=== PATIENT | male | born 1965 | race Caucasian/White ===

== ENCOUNTER 2018-10-28 22:12 | Emergency (ER) | payer BC ==
[2018-10-28 22:16] VITALS: BP 147/78; PULSE 81; TEMP 99.1; BMI 33.7
--- NOTE | 2018-10-28 23:13 | PDOC ---
History of Present Illness - General History Source: Patient Exam Limitations: No Limitations - History of Present Illness Initial Comments: 10/28/18 23:41 The patient is a 53 year old male with no past medical history presents to the emergency department with chest pain. The patient reports earlier today he had an acute onset of L. flank pain that radiates to the anterior chest wall at 8: 00 pm. The patient reports at 7 following up at the Urgent Care for the flank pain, with unremarkable work up and returned home around 8:00 pm. The patient reports when he returned home he developed anterior chest pain, with pain with deep breathing. The patient reports he was unable to lay down. Denies any burning sensation to the chest. The patient report last night at 2:00 am, he had an episode of cold flare up without relief with multiple blankets. The patient states he was lifting heavy objects on Friday, he was moving furnitures and heavy objects. The patient reports in the last year he had gain couple of pounds, states he had stopped going to the gym. Denies fever, chills, shortness of breath, hx of panic attack, leg pain, swelling, back pain. Allergies: NKDA Social history: Social history of alcohol. No tobacco or recreational drug use reported. Surgical history: left elbow tricep tendon repair by Dr. Bhatt (04/30/16) PCP: Dr. Gigi Bailey. <Santa Tolentino - Last Filed: 10/29/18 00:28> <Sarahy Brooks - Last Filed: 10/29/18 02:00> - General Chief Complaint: Chest Pain Stated Complaint: CHEST PAIN Time Seen by Provider: 10/28/18 23:13 Past History <Santa Tolentino - Last Filed: 10/29/18 00:28> - Past Medical History Anemia: No Asthma: No Cancer: No Cardiac Disorders: No CVA: No COPD: No CHF: No Dementia: No Diabetes: No GI Disorders: No Disorders: No HTN: No Hypercholesterolemia: No Liver Disease: No Seizures: No Thyroid Disease: No - Suicide/Smoking/Psychosocial Hx Smoking History: Never smoked Hx Alcohol Use: Yes (social) Drug/Substance Use Hx: No Substance Use Type: None <Sarahy Brooks - Last Filed: 10/29/18 02:00> - Past Medical History Allergies/Adverse Reactions: Allergies Allergy/AdvReac Type Severity Reaction Status Date / Time No Known Drug Allergies Allergy Verified 10/28/18 22:15 Home Medications: Ambulatory Orders Multivitamin [Poly-Vitamin] 1 each PO DAILY 04/26/16 Protein Supplement [Protein Powder] 454 gm PO DAILY 04/26/16 Azithromycin [Zithromax 250mg Tablets -] 250 mg PO UTDICT #6 tab 10/29/18 Review of Systems - Review of Systems Able to Perform ROS?: Yes Comments:: 10/28/18 23:38 GENERAL/CONSTITUTIONAL: No fever or chills. No weakness. HEAD, EYES, EARS, NOSE AND THROAT: No change in vision. No ear pain or discharge. No sore throat. CARDIOVASCULAR: + chest pain No shortness of breath. RESPIRATORY: No cough, wheezing, or hemoptysis. GASTROINTESTINAL: No nausea, vomiting, diarrhea or constipation. GENITOURINARY: No dysuria, frequency, or change in urination. MUSCULOSKELETAL: No joint or muscle swelling or pain. No neck or back pain. SKIN: No rash NEUROLOGIC: No headache, vertigo, loss of consciousness, or change in strength/ sensation. ENDOCRINE: No increased thirst. No abnormal weight change. HEMATOLOGIC/LYMPHATIC: No anemia, easy bleeding, or history of blood clots. ALLERGIC/IMMUNOLOGIC: No hives or skin allergy. <Santa Tolentino - Last Filed: 10/29/18 00:28> *Physical Exam - Vital Signs Last Vital Signs Temp Pulse Resp BP Pulse Ox 99.1 F 81 22 H 147/78 95 10/28/18 22:13 10/28/18 22:13 10/28/18 22:13 10/28/18 22:13 10/28/18 22:13 - Physical Exam Comments: 10/28/18 23:39 GENERAL: Awake, alert, and fully oriented, appears anxious in no acute distress HEAD: No signs of trauma EYES: PERRLA, EOMI, sclera anicteric, conjunctiva clear ENT: Auricles normal inspection, hearing grossly normal, nares patent, oropharynx clear without exudates. Moist mucosa NECK: Normal ROM, supple, no lymphadenopathy, JVD, or masses LUNGS: Breath sounds equal, clear to auscultation bilaterally. No wheezes, and no crackles HEART: Regular rate and rhythm, normal S1 and S2, no murmurs, rubs or gallops ABDOMEN: Soft, nontender, normoactive bowel sounds. No guarding, no rebound. No masses EXTREMITIES: Normal range of motion, no edema. No clubbing or cyanosis. No cords, erythema, or tenderness NEUROLOGICAL: Cranial nerves II through XII grossly intact. Normal speech, normal gait SKIN: No rashes. Warm, Dry, normal turgor, no rashes or lesions noted. <Santa Tolentino - Last Filed: 10/29/18 00:28> - Vital Signs Last Vital Signs Temp Pulse Resp BP Pulse Ox 99.1 F 81 22 H 147/78 95 10/28/18 22:13 10/28/18 22:13 10/28/18 22:13 10/28/18 22:13 10/28/18 22:13 <Sarahy Brooks - Last Filed: 10/29/18 02:00> Moderate Sedation - Procedure Monitoring Vital Signs: Procedure Monitoring Vital Signs Temperature 99.1 F 10/28/18 22:13 Pulse Rate 81 10/28/18 22:13 Respiratory Rate 22 H 10/28/18 22:13 Blood Pressure 147/78 10/28/18 22:13 O2 Sat by Pulse Oximetry (%) 95 10/28/18 22:13 <Santa Tolentino - Last Filed: 10/29/18 00:28> - Procedure Monitoring Vital Signs: Procedure Monitoring Vital Signs Temperature 99.1 F 10/28/18 22:13 Pulse Rate 81 10/28/18 22:13 Respiratory Rate 22 H 10/28/18 22:13 Blood Pressure 147/78 10/28/18 22:13 O2 Sat by Pulse Oximetry (%) 95 10/28/18 22:13 <Sarahy Brooks - Last Filed: 10/29/18 02:00> Heart Score/ECG Review - ECG Intrepretation Comment:: 10/29/18 00:05 sinus at 88, nl axis, nl interval, no acute st/t wave finding <Sarahy Brooks - Last Filed: 10/29/18 02:00> ED Treatment Course - LABORATORY CBC & Chemistry Diagram: 10/29/18 00:18 10/29/18 00:18 <Santa Tolentino - Last Filed: 10/29/18 00:28> - LABORATORY CBC & Chemistry Diagram: 10/29/18 00:18 10/29/18 00:18 <Sarahy Brooks - Last Filed: 10/29/18 02:00> Medical Decision Making - Medical Decision Making 10/29/18 00:05 53yo male with anterior chest pain -no radiation -no sob -no cough/congestion -appears anxious upon exam -will send labs, ekg, cxr -pt is nontoxic in appearance -no PE risk factors -will monitor and reassess 10/29/18 01:54 RLL infiltrate on cxr elevated wbc will give azithromycin for poss early pna <Sarahy Brooks - Last Filed: 10/29/18 02:00> *DC/Admit/Observation/Transfer - Attestations Scribe Attestion: 10/28/18 23:39 Documentation prepared by Santa Tolentino, acting as medical records manager for Sarahy Brooks DO. <Santa Tolentino - Last Filed: 10/29/18 00:28> - Discharge Dispostion Decision to Admit order: No - Attestations Physician Attestion: 10/29/18 02:00 I, Dr. aSrahy Brooks DO, attest that this document has been prepared under my direction and personally reviewed by me in its entirety. I further attest, that it accurately reflects all work, treatment, procedures and medical decision -making performed by me. <Sarahy Brooks - Last Filed: 10/29/18 02:00> Diagnosis at time of Disposition: Pneumonia - Discharge Dispostion Disposition: HOME Condition at time of disposition: Stable - Prescriptions Prescriptions: Azithromycin [Zithromax 250mg Tablets -] 250 mg PO UTDICT #6 tab - Referrals Referrals: Arnaud Bailey [Primary Care Provider] - - Patient Instructions Printed Discharge Instructions: DI for Atypical Chest Pain, DI for Pneumonia - - Adult Additional Instructions: Please take all medications as prescribed. Please follow up with your PMD in 2 days for a re-eval. Please return to the ED with any further concerns or complaints. Please drink plenty of fluids. Please take tylenol or motrin as needed for a fever. - Post Discharge Activity Forms/Work/School Notes: Back to Work
[2018-10-29 00:25] LABS: BASO % 0.4 % (0-2.0); EOS % 0.6 % (0-4.5); HEMATOCRIT 41.4 % (35.4-49); HEMOGLOBIN 14.5 GM/dL (11.7-16.9); LYMPH % 11.5 % (8-40); MCH 31.8 pg (25.7-33.7); MCHC 34.9 g/dl (32.0-35.9); MEAN PLT VOLUME 7.3 fl (7.5-11.1); MONO % 13.7 % (3.8-10.2); NEUT % 73.8 % (42.8-82.8); PLATELET COUNT 239 K/MM3 (134-434); RBC 4.55 M/mm3 (4.00-5.60); RDW 13.2 % (11.9-15.9); WHITE BLOOD COUNT 13.1 K/mm3 (4.0-10.0)
[2018-10-29 01:35] LABS: ALBUMIN 3.8 g/dl (3.4-5.0); ALK PHOS 72 U/L (45-117); ANION GAP 8 MMOL/L (8-16); BLOOD UREA NITROGEN 15 mg/dL (7-18); CALCIUM 8.3 mg/dL (8.5-10.1); CHLORIDE 101 mmol/L (98-107); CO2 29 mmol/L (21-32); CREATININE 1.1 mg/dL (0.55-1.3); GLUCOSE,RANDOM 102 mg/dL (74-106); MAGNESIUM 2.2 mg/dL (1.8-2.4); POTASSIUM 4.4 mmol/L (3.5-5.1); SGOT/AST 20 U/L (15-37); SGPT/ALT 31 U/L (13-61); SODIUM 137 mmol/L (136-145); TOT PROT 7.7 g/dl (6.4-8.2)
[2018-10-29] MEDS ORDERED: AZITHROMYCIN 250 MG TABLET PO ONE (01:53)
[2018-10-29] MEDS ORDERED: ACETAMINOPHEN 325 MG TABLET (FP) PO ONE (01:55)
[2018-10-29] MEDS ORDERED: AZITHROMYCIN 250 MG TABLET ONE (01:56)
[2018-10-29] MEDS ORDERED: ACETAMINOPHEN 325 MG TABLET (FP) ONE (01:56)
--- NOTE | 2018-10-29 11:58 | EKG ---
Test Reason : Blood Pressure : / mmHG Vent. Rate : 088 BPM Atrial Rate : 088 BPM P-R Int : 154 ms QRS Dur : 090 ms QT Int : 336 ms P-R-T Axes : 039 011 021 degrees QTc Int : 406 ms NORMAL SINUS RHYTHM SEPTAL INFARCT , AGE UNDETERMINED ABNORMAL ECG NO PREVIOUS ECGS AVAILABLE Confirmed by OLIVIA JAMES, DAYA ([id number]) on 10/29/2018 11:57:53 AM Referred By: Confirmed By:DAYA BAKER MD
== END 2018-10-29 02:19 | disposition home or self-care (01) ==
LOC: JER 22:12
DX: J18.9 Pneumonia, unspecified organism (principal)
CPT/HCPCS: 36415; 71046-TC-FY; 80053; 82550; 83735; 84443; 84484; 85025; 93005; 93010; 99281-25; 99284-25